=== PATIENT | male | born 1940 | race Caucasian/White ===

== ENCOUNTER 2019-02-26 10:51 | Observation (INO) | payer MEDICARE, OTHER ==
[~2019-02-26] VITALS: Ht 180.3 cm; Wt 78.6 kg
[2019-02-26] MEDS ORDERED: Prinivil5 MG PO (11:05)
[2019-02-26] MEDS ORDERED: CLOP75 PO (11:05)
[2019-02-26] MEDS ORDERED: METF500 PO (11:05)
[2019-02-26] MEDS ORDERED: ATORVASTATIN CA40 MG PO (11:05)
[2019-02-26] MEDS ORDERED: NITR.4SL SL (11:06)
[2019-02-26 11:19] LABS: BASOPHILS ABSOLUTE AUTO 0.06 K/mm3 (0.00-0.23); BASOPHILS PERCENT AUTO 1 % (0-2); EOSINOPHILS ABSOLUTE AUTO 0.17 K/mm3 (0.00-0.68); EOSINOPHILS PERCENT AUTO 3 % (0-6); Hematocrit 33.1 % (37.0-53.0); Hemoglobin 11.4 g/dL (13.5-17.5); IMMATURE GRAN ABSOLUTE AUTO 0.02 K/mm3 (0.00-0.10); IMMATURE GRAN PERCENT AUTO 0 % (0-1); LYMPHOCYTES ABSOLUTE AUTO 1.15 K/mm3 (0.84-5.20); LYMPHOCYTES PERCENT AUTO 21 % (21-46); MONOCYTES PERCENT AUTO 15 % (4-13); Mean Corpuscular HGB 31.7 pg (26.0-34.0); Mean Corpuscular HGB Conc 34.4 g/dL (31.5-36.5); Mean Corpuscular Volume 92 fL (80-100); Mean Platelet Volume 9.1 fL (9.1-12.4); NEUTROPHILS ABSOLUTE AUTO 3.27 K/mm3 (1.96-9.15); NEUTROPHILS PERCENT AUTO 60 % (41-73); Platelet Count 274 K/mm3 (150-400); RDW Coefficient Variation 11.9 % (11.7-14.2); RDW Standard Deviation 40.2 fL (35.1-46.3); White Blood Cell Count 5.47 K/mm3 (4.00-11.30)
[2019-02-26 11:33] LABS: Alanine Aminotransfer (ALT/SGP 22 U/L (12-78); Albumin/Globulin Ratio 1.2 (0.8-1.8); Alk Phos 38 U/L (50-136); Anion Gap 10 mmol/L (6-16); Aspartate Aminotrans (AST/SGOT 14 U/L (12-37); Bilirubin, Total 0.7 mg/dL (0.1-1.0); Blood Urea Nitrogen 14 mg/dL (8-24); Bun/Creatinine Ratio 15.2 (12.0-20.0); CO2, Blood 25 mmol/L (21-32); Calcium, Blood 8.7 mg/dL (8.5-10.1); Chloride, Blood 100 mmol/L (98-108); Creatinine, Blood 0.92 mg/dL (0.60-1.20); Globulin, Blood 3.4 g/dL (2.2-4.0); Glomerular Filtration Rate >60 (60-); Glucose, Blood 130 mg/dL (70-99); Potassium, Blood 4.5 mmol/L (3.5-5.5); Sodium, Blood 135 mmol/L (136-145); Total Protein, Blood 7.4 g/dL (6.4-8.2); Troponin I <0.015 ng/mL (0.000-0.040)
[2019-02-26 12:48] LABS: Source, Urine Clean Catch
[2019-02-26 12:52] LABS: Bilirubin, Urine Neg (Neg); Blood, Urine Neg (Neg); Glucose Qualitative, Urine Neg (Neg); Ketones, Urine 1+ (Neg); Leukocyte Esterase, Urine Neg (Neg); Nitrite, Urine Neg (Neg); Protein, Urine 2+ (Neg); Urobilinogen, Urine NORM (Normal)
[2019-02-26 13:01] LABS: Appearance, Urine Clear (Clear); Color, Urine Yellow (P-Yellow)
[2019-02-26 13:02] LABS: Bacteria Not Seen /hpf; Red Blood Cells, Urine 0-2 /hpf (0-2); Squamous Epithelial Cells Not Seen /hpf (Few); White Blood Cells, Urine 0-2 /hpf (0-5)
[2019-02-26] MEDS ORDERED: Aspirin EC81 MG PO (14:49)
[2019-02-26 15:22] LABS: Magnesium, Blood 1.9 mg/dL (1.6-2.4)
[2019-02-26] MEDS ORDERED: Non-Pseudo Sinu10 MG PO (15:32)
[2019-02-26] MEDS ORDERED: ASPI325 PO (15:32)
[2019-02-26 15:36] LABS: Troponin I <0.015 ng/mL (0.000-0.040)
[2019-02-26 17:12] LABS: CPK Creatine Kinase 271 U/L (39-308)
--- NOTE | 2019-02-26 18:50 | NUR ---
SHIFT SUMMARY PT AXO, PLEASANT AND COOPERATIVE WITH CARE. ARRIVED VIA WHEELCHAIR TO ROOM AT 1515. PT COMPLAINED OF HEADACHE, MEDICATED PER EMAR WITH GOOD EFFECT. PT ORIENTED TO ROOM AND EDUCATED ABOUT FALL PREVENTION, ETC. ADMISSION COMPLETED WITH SPOUSE. IV PATENT AND SALINE LOCKED. PT DENIES CHEST PAIN AND SOB. MEDICATED FOR NAUSEA PER EMAR. PT ON TELE, RUNNING WANDERING ATRIAL PACEMAKER AT 59 PER WASHER OPERATOR. BED IN LOW POSITION, CALL LIGHT WITHIN REACH. PT AGREES TO CALL IF HE HAS A NEED.
[2019-02-26 21:49] LABS: CPK Creatine Kinase 280 U/L (39-308)
--- NOTE | 2019-02-27 03:09 | NUR ---
SHIFT SUMMARY PATIENT HAD NO ACUTE CHANGES OBSERVED THIS SHIFT. AXOX 3 AND ONE ASSIST TO BR. LA JOLLA AND CBG 192. PIV REMAINS INTACT. POLYSOMNOGRAPHY TECH REPORTS WANDERING ATRIAL PACER W/PAC AT 66. DENIES CHEST PAIN, SOB, AND N/V. VSS/AFEBRILE. DESRYL 25 MG GIVEN PRN FOR INSOMNIA. CALL LIGHT IN REACH. BED IN LOWEST POSITION. WILL CONTINUE TO MONITOR UNTIL DAY SHIFT NURSE ASSUMES CARE.
[2019-02-27 05:12] LABS: Hematocrit 31.8 % (37.0-53.0); Hemoglobin 10.8 g/dL (13.5-17.5); Mean Corpuscular HGB 30.3 pg (26.0-34.0); Mean Platelet Volume 9.1 fL (9.1-12.4); Platelet Count 258 K/mm3 (150-400); RDW Coefficient Variation 11.8 % (11.7-14.2); RDW Standard Deviation 38.2 fL (35.1-46.3); Red Blood Cell Count 3.56 M/mm3 (4.30-5.90); White Blood Cell Count 7.48 K/mm3 (4.00-11.30)
[2019-02-27 05:13] LABS: Mean Corpuscular Volume 89 fL (80-100)
[2019-02-27 06:10] LABS: Anion Gap 8 mmol/L (6-16); Blood Urea Nitrogen 22 mg/dL (8-24); Bun/Creatinine Ratio 19.5 (12.0-20.0); CO2, Blood 26 mmol/L (21-32); Calcium, Blood 8.5 mg/dL (8.5-10.1); Chloride, Blood 98 mmol/L (98-108); Creatinine, Blood 1.13 mg/dL (0.60-1.20); Glomerular Filtration Rate >60 (60-); Glucose, Blood 134 mg/dL (70-99); Magnesium, Blood 1.9 mg/dL (1.6-2.4); Potassium, Blood 4.1 mmol/L (3.5-5.5); Sodium, Blood 132 mmol/L (136-145); Troponin I <0.015 ng/mL (0.000-0.040)
--- NOTE | 2019-02-27 10:12 | NUR ---
Echocardiogram completed.
[2019-02-27] MEDS ORDERED: ACET325 PO (11:11)
[2019-02-27] MEDS ORDERED: ATEN25 PO (11:11)
[2019-02-27] MEDS ORDERED: BISA5EC PO (11:11)
[2019-02-27] MEDS ORDERED: ONDA4ODT PO (11:13)
[2019-02-27] MEDS ORDERED: HYDRA25 PO (11:13)
[2019-02-27] MEDS ORDERED: SENN187 PO (11:14)
[2019-02-27] MEDS ORDERED: TRAZ50 PO (11:14)
--- NOTE | 2019-02-27 15:53 | NUR ---
PATIENT TO DISCHARGE HOME. IV REMOVED, NO SS OF INFECTION NOTED. MEDS FAXED INTO [facility]. NEW MEDS DISCUSSED WITH PATIENT AND FAMILY. PATIENT HAS NO PCP BUT WAS GIVEN INFORMATION ON [facility] AND WILL SET UP FOLLOW UP. TOLD TO GO TO URGENT CARE IF ANY ISSUES ARISE BEFORE THEN. PATIENT DRESSED AND TAKEN DOWN TO CAR AND TAKEN HOME BY .
== END 2019-02-27 13:15 | disposition home or self-care (01) ==
LOC: ER 10:51 → MEDS 10:52 → ENPENDDIS 02-27 11:08 → MEDS 02-27 13:15
PROVIDERS: Emergency Medicine; ADMIT Family Medicine
DX: I16.0 Hypertensive urgency (principal); I67.4 Hypertensive encephalopathy; E11.9 Type 2 diabetes mellitus without complications; I25.10 Atherosclerotic heart disease of native coronary artery without angina pectoris; R11.2 Nausea with vomiting, unspecified; Z79.01 Long term (current) use of anticoagulants; Z87.891 Personal history of nicotine dependence; Z79.02 Long term (current) use of antithrombotics/antiplatelets; Z79.899 Other long term (current) drug therapy
CPT/HCPCS: 36415; 70450; 71046; 80048; 80053; 81001; 82550; 82947; 83036; 83735; 83880; 84443; 84484; 85025; 85027; 93005; 93010; 93306; 96372; 96374; 96375; 99285-25; A9270; G0378; J1650; J2405

== ENCOUNTER → 2021-05-30 | Outpatient (CLI) | payer MEDICARE, BC ==
[~2021-05-30] MED LIST: ACET325 PO; ASPI325 PO; ATEN25 PO; ATORVASTATIN CA40 MG PO; Aspirin EC81 MG PO; BISA5EC PO; CLOP75 PO; HYDRA25 PO; METF500 PO; NITR.4SL SL; Non-Pseudo Sinu10 MG PO; ONDA4ODT PO; Prinivil5 MG PO; SENN187 PO; TRAZ50 PO
== END | disposition home or self-care (01) ==
LOC: LAB SHORT 12:22 → LAB 12:22
DX: L72.0 Epidermal cyst (principal)
CPT/HCPCS: 88304

== ENCOUNTER 2022-01-28 10:18 | Emergency (ER) | payer MEDICARE, BC ==
[~2022-01-28] VITALS: Ht 172.7 cm; Wt 72.6 kg
== END 2022-01-28 10:36 | disposition home or self-care (01) ==
LOC: ER 10:18
DX: Z03.823 Encounter for observation for suspected inserted (injected) foreign body ruled out (principal); E11.9 Type 2 diabetes mellitus without complications; I48.91 Unspecified atrial fibrillation; I25.2 Old myocardial infarction; I25.10 Atherosclerotic heart disease of native coronary artery without angina pectoris; I10 Essential (primary) hypertension; Z95.5 Presence of coronary angioplasty implant and graft; Z79.899 Other long term (current) drug therapy; Z79.84 Long term (current) use of oral hypoglycemic drugs; Z79.02 Long term (current) use of antithrombotics/antiplatelets; Z79.82 Long term (current) use of aspirin
CPT/HCPCS: 99281

== ENCOUNTER → 2023-05-07 | Outpatient (CLI) | payer MEDICARE, BC ==
[2023-05-07 11:28] LABS: BASOPHILS ABSOLUTE AUTO 0.09 K/mm3 (0.00-0.23); BASOPHILS PERCENT AUTO 2 % (0-2); EOSINOPHILS ABSOLUTE AUTO 0.57 K/mm3 (0.00-0.68); EOSINOPHILS PERCENT AUTO 10 % (0-6); Hematocrit 32.4 % (37.0-53.0); Hemoglobin 11.3 g/dL (13.5-17.5); IMMATURE GRAN ABSOLUTE AUTO 0.01 K/mm3 (0.00-0.10); IMMATURE GRAN PERCENT AUTO 0 % (0-1); LYMPHOCYTES PERCENT AUTO 21 % (21-46); MONOCYTES ABSOLUTE AUTO 0.77 K/mm3 (0.16-1.47); MONOCYTES PERCENT AUTO 13 % (4-13); Mean Corpuscular HGB 31.7 pg (26.0-34.0); Mean Corpuscular HGB Conc 34.9 g/dL (31.5-36.5); Mean Corpuscular Volume 91 fL (80-100); Mean Platelet Volume 9.6 fL (9.1-12.4); NEUTROPHILS ABSOLUTE AUTO 3.17 K/mm3 (1.96-9.15); NEUTROPHILS PERCENT AUTO 55 % (41-73); Platelet Count 293 K/mm3 (150-400); RDW Coefficient Variation 11.8 % (11.7-14.2); RDW Standard Deviation 39.6 fL (35.1-46.3); Red Blood Cell Count 3.56 M/mm3 (4.30-5.90); White Blood Cell Count 5.81 K/mm3 (4.00-11.30)
[2023-05-07 12:54] LABS: Alanine Aminotransfer (ALT/SGP 21 U/L (12-78); Albumin, Blood 4.2 g/dL (3.4-5.0); Albumin/Globulin Ratio 1.2 (0.8-1.8); Alk Phos 34 U/L (50-136); Anion Gap 6 mmol/L (6-16); Aspartate Aminotrans (AST/SGOT 17 U/L (12-37); Bilirubin, Total 0.5 mg/dL (0.1-1.0); Blood Urea Nitrogen 25 mg/dL (8-24); Bun/Creatinine Ratio 22.3 (12.0-20.0); CHOL/HDL RATIO 3.1; CO2, Blood 29 mmol/L (21-32); Chloride, Blood 100 mmol/L (98-108); Cholesterol 125 mg/dL (50-200); Creatinine, Blood 1.12 mg/dL (0.60-1.20); Globulin, Blood 3.6 g/dL (2.2-4.0); Glomerular Filtration Rate 66 (60-); Glucose, Blood 154 mg/dL (70-99); HDL Cholesterol 40 mg/dL (>39); LDL/HDL RATIO 1.2; Low Density Lipoprotein Chol 47 mg/dL (0-110); Potassium, Blood 4.5 mmol/L (3.5-5.5); Sodium, Blood 135 mmol/L (136-145); Total Protein, Blood 7.8 g/dL (6.4-8.2); Triglycerides 190 mg/dL (30-160); Very Low Density Lipoprot Chol 38 mg/dL (6-32)
== END ==
LOC: LAB SHORT 11:10 → LAB 11:10
PROVIDERS: Family Medicine
DX: E11.9 Type 2 diabetes mellitus without complications (principal); I10 Essential (primary) hypertension; D51.0 Vitamin B12 deficiency anemia due to intrinsic factor deficiency
CPT/HCPCS: 80053; 80061; 82607; 83036; 85025

== ENCOUNTER 2023-11-29 14:43 | Inpatient (IN) | payer MEDICARE, BC ==
[~2023-11-29] VITALS: Ht 180.3 cm; Wt 82.3 kg
[2023-11-29] MEDS ORDERED: AMLO5 PO (15:08)
[2023-11-29 15:39] LABS: BASOPHILS ABSOLUTE AUTO 0.07 K/mm3 (0.00-0.23); BASOPHILS PERCENT AUTO 1 % (0-2); EOSINOPHILS ABSOLUTE AUTO 0.08 K/mm3 (0.00-0.68); EOSINOPHILS PERCENT AUTO 1 % (0-6); IMMATURE GRAN ABSOLUTE AUTO 0.05 K/mm3 (0.00-0.10); IMMATURE GRAN PERCENT AUTO 1 % (0-1); LYMPHOCYTES ABSOLUTE AUTO 0.88 K/mm3 (0.84-5.20); LYMPHOCYTES PERCENT AUTO 10 % (21-46); MONOCYTES ABSOLUTE AUTO 1.26 K/mm3 (0.16-1.47); MONOCYTES PERCENT AUTO 14 % (4-13); Mean Corpuscular HGB 28.9 pg (26.0-34.0); Mean Corpuscular HGB Conc 32.2 g/dL (31.5-36.5); Mean Corpuscular Volume 90 fL (80-100); Mean Platelet Volume 9.8 fL (9.1-12.4); NEUTROPHILS ABSOLUTE AUTO 6.72 K/mm3 (1.96-9.15); NEUTROPHILS PERCENT AUTO 74 % (41-73); Platelet Count 405 K/mm3 (150-400); RDW Standard Deviation 38.4 fL (35.1-46.3); Red Blood Cell Count 1.97 M/mm3 (4.30-5.90); White Blood Cell Count 9.06 K/mm3 (4.00-11.30)
[2023-11-29 15:40] LABS: Hematocrit 17.7 % (37.0-53.0); Hemoglobin 5.7 g/dL (13.5-17.5)
[2023-11-29 15:45] LABS: Albumin, Blood 3.4 g/dL (3.4-5.0); Bilirubin, Total 0.3 mg/dL (0.1-1.0); Bun/Creatinine Ratio 27.5 (12.0-20.0); Calcium, Blood 8.8 mg/dL (8.5-10.1); Creatinine, Blood 1.38 mg/dL (0.60-1.20); Globulin, Blood 3.5 g/dL (2.2-4.0); Potassium, Blood 4.9 mmol/L (3.5-5.5); Total Protein, Blood 6.9 g/dL (6.4-8.2)
[2023-11-29 16:26] LABS: International Normalized Ratio 1.05; Prothrombin Time Results 11.2 Sec (9.7-11.5)
[2023-11-29] MEDS ORDERED: Pantoprazole Sodium 40 MG Injection IV ONE (16:35)
[2023-11-29] MEDS ORDERED: Pantoprazole Sodium 40 MG in NS 50 ML IV SCH (16:35)
[2023-11-29] MEDS ORDERED: Furosemide 10 MG / ML 2ML Vial IV ONE (17:50)
[2023-11-29] MEDS ORDERED: NS 1,000 ML IV SCH (18:15)
[2023-11-29] MEDS ORDERED: Ondansetron HCl 2 MG / ML 2ML Vial IV ONE (19:00)
[2023-11-29] MEDS ORDERED: Morphine Sulfate 4 MG/1 ML Injection IV ONE (19:00)
[2023-11-29] MEDS ORDERED: Acetaminophen 325 MG TABLET PO PRN (20:25)
[2023-11-29] MEDS ORDERED: Morphine Sulfate 4 MG/1 ML Injection IV PRN (20:25)
[2023-11-29] MEDS ORDERED: Ondansetron HCl 2 MG / ML 2ML Vial IV PRN (20:30)
[2023-11-29] MEDS ORDERED: Furosemide 10 MG/ML 4ML Vial IV SCH (21:00)
[2023-11-29] MEDS ORDERED: Nitroglycerin 1 INCH/GM PKT TOP ONE (21:00)
[2023-11-29 21:26] LABS: PCO2 Venous 33.7 mmHg (38-42); pH Blood Venous 7.45 (7.34-7.37)
[2023-11-29 21:27] LABS: Base Excess Venous -0.9 mmol/L; Bicarbonate Venous 23.8 mmol/L (24.0-30.0)
[2023-11-29 22:02] LABS: Beta-hydroxybutyrate 11.1 mg/dL (0.2-2.8); Percent Saturation 3.8 % (20.0-50.0)
[2023-11-29 23:15] VITALS: BP 130/68
[2023-11-29 23:30] VITALS: BP 122/57
[2023-11-29 23:39] LABS: Source, Urine Clean Catch
--- NOTE | 2023-11-29 23:44 | NUR ---
ADMISSION NOTE; RECEIVED PATIENT FROM ED IN NO DISTRESS. PATIENT WITH BLOOD INFUSING TO LT. A/C 125CC/HR. PATIENT ABLE TO STAND AND TRANSFER TO BED WITHOUT DIFFICULTY. PLACED ON HIGH FLOW OXYGEN AT 10L. AT BEDSIDE TO VERIFY MEDICATIONS AND FOR HISTORY. NO COMPLAINTS OF CHEST PAIN AT PRESENT TIME.
[2023-11-29 23:51] LABS: Bilirubin, Urine Neg (Neg); Blood, Urine Neg (Neg); Glucose Qualitative, Urine Neg (Neg); Ketones, Urine Neg (Neg); Leukocyte Esterase, Urine Neg (Neg); Nitrite, Urine Neg (Neg); Protein, Urine Neg (Neg); Urobilinogen, Urine NORM (Normal)
[2023-11-30] VITALS (13 sets, daily range): BP systolic 103–138; BP diastolic 52–109
[2023-11-30] MEDS ORDERED: Insulin Human Lispro 100 Units/ML 3ML Syringe SC SCH
[2023-11-30 00:29] LABS: Appearance, Urine Clear (Clear); Color, Urine Pale Yellow (P-Yellow)
--- NOTE | 2023-11-30 03:23 | NUR ---
BLOOD INFUSED WITHOUT DIFFICULTY. NEW LABS RESULTS PENDING. O0NE EPISODE OF CHEST PAIN NOTED RESOLVED WITH IV MORPHINE.
[2023-11-30 03:40] LABS: Hematocrit 27.7 % (37.0-53.0); Hemoglobin 9.2 g/dL (13.5-17.5); Mean Corpuscular HGB 29.4 pg (26.0-34.0); Mean Corpuscular HGB Conc 33.2 g/dL (31.5-36.5); Mean Corpuscular Volume 89 fL (80-100); Mean Platelet Volume 9.2 fL (9.1-12.4); Platelet Count 367 K/mm3 (150-400); RDW Coefficient Variation 12.4 % (11.7-14.2); RDW Standard Deviation 39.6 fL (35.1-46.3); RETICULOCYTE ABSOLUTE 0.1189 M/mm3 (0.0200-0.1100); Red Blood Cell Count 3.13 M/mm3 (4.30-5.90); White Blood Cell Count 11.03 K/mm3 (4.00-11.30)
[2023-11-30 03:58] LABS: International Normalized Ratio 1.06; Prothrombin Time Results 11.3 Sec (9.7-11.5)
[2023-11-30 04:39] LABS: Calcium, Blood 8.6 mg/dL (8.5-10.1); Potassium, Blood 4.2 mmol/L (3.5-5.5)
[2023-11-30 04:44] LABS: Bun/Creatinine Ratio 26.1 (12.0-20.0); Creatinine, Blood 1.34 mg/dL (0.60-1.20)
[2023-11-30 04:45] LABS: Albumin, Blood 3.5 g/dL (3.4-5.0); Bilirubin, Total 1.2 mg/dL (0.1-1.0); Globulin, Blood 3.6 g/dL (2.2-4.0); Magnesium, Blood 2.5 mg/dL (1.6-2.4); Total Protein, Blood 7.1 g/dL (6.4-8.2)
[2023-11-30] MEDS ORDERED: Pantoprazole Sodium 40 MG Injection IV SCH (06:00)
[2023-11-30] MEDS ORDERED: Nitroglycerin 1 INCH/GM PKT TOP SCH (07:45)
[2023-11-30 08:48] LABS: Hematocrit 26.8 % (37.0-53.0); Hemoglobin 9.1 g/dL (13.5-17.5)
[2023-11-30] MEDS ORDERED: Atorvastatin 40 MG Tab PO SCH (09:00)
[2023-11-30] MEDS ORDERED: NS 500 ML IV SCH (09:45)
--- NOTE | 2023-11-30 12:57 | NUR ---
Summary. No adverse events this shift. 1 unit blood transfused this am. Pt transported to [facility] at approximately 1215. All personal belongings sent home with family members or with patient. Report given to RN assuming care. Pt transferred to Room 4122.
== END 2023-11-30 12:20 | disposition short-term general hospital (02) | DRG 280 ==
LOC: ER 14:43 → ICUE 19:32
PROVIDERS: Internal Medicine; Nurse Practitioner Acute Care; Student in an Organized Health Care Education/Training Program; ADMIT Student in an Organized Health Care Education/Training Program
PROC: 30233N1 Transfusion of Nonautologous Red Blood Cells into Peripheral Vein, Percutaneous Approach (ICD-10-PCS; principal; 2023-11-29)
DX: I13.0 Hypertensive heart and chronic kidney disease with heart failure and stage 1 through stage 4 chronic kidney disease, or unspecified chronic kidney disease (principal); J96.01 Acute respiratory failure with hypoxia; I21.A1 Myocardial infarction type 2; N17.9 Acute kidney failure, unspecified; D64.9 Anemia, unspecified; I25.10 Atherosclerotic heart disease of native coronary artery without angina pectoris; E78.5 Hyperlipidemia, unspecified; I35.0 Nonrheumatic aortic (valve) stenosis; R19.5 Other fecal abnormalities; I50.9 Heart failure, unspecified; E11.22 Type 2 diabetes mellitus with diabetic chronic kidney disease; N18.9 Chronic kidney disease, unspecified; I48.0 Paroxysmal atrial fibrillation; Z95.5 Presence of coronary angioplasty implant and graft; Z79.84 Long term (current) use of oral hypoglycemic drugs; Z79.82 Long term (current) use of aspirin; Z79.02 Long term (current) use of antithrombotics/antiplatelets; I25.2 Old myocardial infarction; Z87.891 Personal history of nicotine dependence
CPT/HCPCS: 36415; 36430; 71045; 71260; 74174; 80053; 81003; 82010; 82330; 82550; 82607; 82728; 82746; 82803; 82947; 83540; 83550; 83605; 83735; 83880; 84484; 85014; 85018; 85025; 85027; 85045; 85379; 85610; 86850; 86900; 86901; 86923; 93005; 93010; 93306; 96365-59; 96366; 96375-59; 99285-25; A9270; C9113; J1940; J2270; J2405; J7030; P9016; Q9967

== ENCOUNTER → 2023-12-11 | Outpatient (CLI) | payer MEDICARE, BC ==
[~2023-12-11] MED LIST changes: +AMLO5 PO
[2023-12-11 13:20] LABS: BASOPHILS PERCENT AUTO 2 % (0-2); EOSINOPHILS ABSOLUTE AUTO 0.35 K/mm3 (0.00-0.68); EOSINOPHILS PERCENT AUTO 6 % (0-6); Hematocrit 31.8 % (37.0-53.0); Hemoglobin 10.2 g/dL (13.5-17.5); IMMATURE GRAN ABSOLUTE AUTO 0.03 K/mm3 (0.00-0.10); IMMATURE GRAN PERCENT AUTO 1 % (0-1); LYMPHOCYTES ABSOLUTE AUTO 0.97 K/mm3 (0.84-5.20); LYMPHOCYTES PERCENT AUTO 16 % (21-46); MONOCYTES PERCENT AUTO 12 % (4-13); Mean Corpuscular HGB 27.9 pg (26.0-34.0); Mean Corpuscular HGB Conc 32.1 g/dL (31.5-36.5); Mean Corpuscular Volume 87 fL (80-100); NEUTROPHILS ABSOLUTE AUTO 3.84 K/mm3 (1.96-9.15); NEUTROPHILS PERCENT AUTO 64 % (41-73); Platelet Count 435 K/mm3 (150-400); RDW Coefficient Variation 13.1 % (11.7-14.2); RDW Standard Deviation 41.5 fL (35.1-46.3); Red Blood Cell Count 3.65 M/mm3 (4.30-5.90); White Blood Cell Count 5.99 K/mm3 (4.00-11.30)
[2023-12-11 15:22] LABS: Alanine Aminotransfer (ALT/SGP 21 U/L (12-78); Albumin, Blood 3.9 g/dL (3.4-5.0); Alk Phos 48 U/L (50-136); Anion Gap 13 mmol/L (3-11); Aspartate Aminotrans (AST/SGOT 16 U/L (12-37); Bilirubin, Total 0.4 mg/dL (0.1-1.0); Blood Urea Nitrogen 23 mg/dL (8-24); Bun/Creatinine Ratio 18.4 (12.0-20.0); CHOL/HDL RATIO 3.1; CO2, Blood 26 mmol/L (21-32); Calcium, Blood 9.1 mg/dL (8.5-10.1); Chloride, Blood 101 mmol/L (98-108); Cholesterol 129 mg/dL (50-200); Creatinine, Blood 1.25 mg/dL (0.60-1.20); Glomerular Filtration Rate 57 (60-); Glucose, Blood 205 mg/dL (70-99); HDL Cholesterol 42 mg/dL (>39); LDL/HDL RATIO 1.5; Low Density Lipoprotein Chol 62 mg/dL (0-110); Potassium, Blood 4.2 mmol/L (3.5-5.5); Sodium, Blood 136 mmol/L (136-145); Total Protein, Blood 7.9 g/dL (6.4-8.2); Triglycerides 123 mg/dL (30-160); Very Low Density Lipoprot Chol 24 mg/dL (6-32)
== END | disposition home or self-care (01) ==
LOC: LAB SHORT 12:37 → LAB 12:37
PROVIDERS: Family Medicine
DX: I10 Essential (primary) hypertension (principal); D51.0 Vitamin B12 deficiency anemia due to intrinsic factor deficiency; E11.9 Type 2 diabetes mellitus without complications; N42.9 Disorder of prostate, unspecified; Z79.84 Long term (current) use of oral hypoglycemic drugs
CPT/HCPCS: 80053; 80061; 82607; 83036; 84153; 85025

== ENCOUNTER → 2024-01-10 | Outpatient (CLI) | payer MEDICARE, BC ==
[2024-01-10 13:16] LABS: BASOPHILS PERCENT AUTO 2 % (0-2); EOSINOPHILS ABSOLUTE AUTO 0.61 K/mm3 (0.00-0.68); EOSINOPHILS PERCENT AUTO 11 % (0-6); Hematocrit 33.6 % (37.0-53.0); Hemoglobin 10.9 g/dL (13.5-17.5); IMMATURE GRAN ABSOLUTE AUTO 0.01 K/mm3 (0.00-0.10); IMMATURE GRAN PERCENT AUTO 0 % (0-1); LYMPHOCYTES ABSOLUTE AUTO 1.16 K/mm3 (0.84-5.20); LYMPHOCYTES PERCENT AUTO 22 % (21-46); MONOCYTES ABSOLUTE AUTO 0.63 K/mm3 (0.16-1.47); MONOCYTES PERCENT AUTO 12 % (4-13); Mean Corpuscular HGB 27.8 pg (26.0-34.0); Mean Corpuscular HGB Conc 32.4 g/dL (31.5-36.5); Mean Corpuscular Volume 86 fL (80-100); Mean Platelet Volume 9.4 fL (9.1-12.4); NEUTROPHILS ABSOLUTE AUTO 2.87 K/mm3 (1.96-9.15); NEUTROPHILS PERCENT AUTO 53 % (41-73); Platelet Count 280 K/mm3 (150-400); RDW Coefficient Variation 14.8 % (11.7-14.2); RDW Standard Deviation 46.5 fL (35.1-46.3); Red Blood Cell Count 3.92 M/mm3 (4.30-5.90); White Blood Cell Count 5.38 K/mm3 (4.00-11.30)
== END | disposition home or self-care (01) ==
LOC: LAB 10:55 → LAB SHORT 10:55
PROVIDERS: Family Medicine
DX: D62 Acute posthemorrhagic anemia (principal); I10 Essential (primary) hypertension
CPT/HCPCS: 85025

== ENCOUNTER → 2024-08-19 | Outpatient (CLI) | payer MEDICARE, BC ==
[2024-08-19 13:27] LABS: BASOPHILS ABSOLUTE AUTO 0.08 K/mm3 (0.00-0.23); BASOPHILS PERCENT AUTO 2 % (0-2); EOSINOPHILS ABSOLUTE AUTO 0.23 K/mm3 (0.00-0.68); EOSINOPHILS PERCENT AUTO 6 % (0-6); Hematocrit 31.4 % (37.0-53.0); Hemoglobin 10.8 g/dL (13.5-17.5); IMMATURE GRAN ABSOLUTE AUTO 0.01 K/mm3 (0.00-0.10); IMMATURE GRAN PERCENT AUTO 0 % (0-1); LYMPHOCYTES ABSOLUTE AUTO 1.04 K/mm3 (0.84-5.20); LYMPHOCYTES PERCENT AUTO 27 % (21-46); MONOCYTES ABSOLUTE AUTO 1.11 K/mm3 (0.16-1.47); MONOCYTES PERCENT AUTO 29 % (4-13); Mean Corpuscular HGB 31.3 pg (26.0-34.0); Mean Corpuscular HGB Conc 34.4 g/dL (31.5-36.5); Mean Corpuscular Volume 91 fL (80-100); Mean Platelet Volume 9.3 fL (9.1-12.4); NEUTROPHILS ABSOLUTE AUTO 1.39 K/mm3 (1.96-9.15); NEUTROPHILS PERCENT AUTO 36 % (41-73); Platelet Count 254 K/mm3 (150-400); RDW Coefficient Variation 12.1 % (11.7-14.2); RDW Standard Deviation 40.3 fL (35.1-46.3); Red Blood Cell Count 3.45 M/mm3 (4.30-5.90); White Blood Cell Count 3.86 K/mm3 (4.00-11.30)
== END ==
LOC: LAB SHORT 11:35 → LAB 11:35
PROVIDERS: Family Medicine
DX: I10 Essential (primary) hypertension (principal)
CPT/HCPCS: 85025